=== PATIENT | female | born 1935 | race African-American/Black ===

== ENCOUNTER 2017-11-24 17:14 | Inpatient (IN) ==
[2017-11-24] MEDS ORDERED: SODIUM CHLORIDE 0.9% 500 ML IV STA (18:20)
[2017-11-24] MEDS ORDERED: KETOROLAC 30 MG/1 ML VIAL IV STA (19:04)
[2017-11-24 19:05] LABS: Basophils % 0.3 % (0.0-0.8); Eosinophils % 0.1 % (0.00-10.9); Hematocrit 38.9 VOL% (35.7-47.0); Immature Granulocytes % 0.6 %; Immature Granulocytes Absolute 0.06 #; Lymphocytes # 0.6 10*3/uL (1.4-4.0); Mean Corpuscular HGB Conc 33.4 GM/DL (32-36); Mean Corpuscular Hemoglobin 27 PG (27-34); Mean Corpuscular Volume 80.9 FL (87-102); Mean Platelet Volume 11.9 FL (9.6-12.0); Monocytes # 0.7 10*3/uL (0.11-0.8); Monocytes % 6.6 % (1.7-12.7); Neutrophils # 8.9 10*3/uL (1.4-7.4); Neutrophils % 86.4 % (38.7-73.9); Platelet Count 227 T/CUMM (130-400); Red Blood Count 4.81 MC/CUMM (3.8-5.5); Red Cell Distribution Width 14.9 % (9.3-17.3); White Blood Count 10.3 T/CUMM (4-12)
[2017-11-24 19:10] LABS: Apearance,Urine CLEAR (Clear); Bilirubin,Urine Negative (Negative); Blood, Urine Small mg/dL (Negative); Glucose,Urine (UA) Negative (Negative); Ketones,Urine Negative (Negative); Mucus,Urine Occasional /LPF (Occasional); Nitrite,Urine Negative (Negative); Protein,Urine Negative; RBC,Urine 1 /HPF (0-4); Squamous Epithelial Cell,Urine Occasional /HPF (0-10); Urine Color Yellow (Yellow); Urine Specific Gravity 1.012 (1.001-1.035); Urine Urobilinogen < 2.0 EU/DL (0.2-1.0); WBC,Urine 2 /HPF (0-6)
[2017-11-24 19:27] LABS: Albumin 3.9 G/DL (3.4-5.0); Bilirubin,Total 0.5 MG/DL (0.2-1.0); Calcium 9.3 MG/DL (8.5-10.1); Lactic Acid 1.7 MMOL/L (0.4-2.0); Osmolality,Calculated 282.3 MOS/KG (273-304); Potassium 3.4 MMOL/L (3.5-5.1); Total Protein 7.7 G/DL (6.4-8.3)
[2017-11-24] MEDS ORDERED: ACETAMINOPHEN 500 MG TABLET ONE (19:43)
[2017-11-24] MEDS ORDERED: hydrALAZINE 20 MG/1 ML VIAL IV STA (20:04)
[2017-11-24] MEDS ORDERED: ACETAMINOPHEN 325 MG/10.15 ML UDCUP PO STA (20:04)
[2017-11-24] MEDS ORDERED: LEVOFLOXACIN INJ 750 MG in PREMIX 1 EACH IV STA (20:05)
[2017-11-24] MEDS ORDERED: DEXTROSE 50% 25 GM/50 ML VIAL IV PRN (22:11)
[2017-11-24] MEDS ORDERED: GLUCAGON 1 MG VIAL IM PRN (22:11)
[2017-11-24] MEDS ORDERED: ACETAMINOPHEN 325 MG TABLET PO PRN (22:11)
[2017-11-24] MEDS ORDERED: POTASSIUM CHLORIDE 20 MEQ PACK PO ONE (23:24)
[2017-11-25] MEDS: SODIUM CHLORIDE 0.45% 1,000 ML IV SCH ×3 (00:05→18:30)
[2017-11-25 07:18] LABS: Basophils % 0.2 % (0.0-0.8); Eosinophils % 0.1 % (0.00-10.9); Hematocrit 34.4 VOL% (35.7-47.0); Hemoglobin 11.7 GM/DL (12.0-16.0); Immature Granulocytes % 0.6 %; Immature Granulocytes Absolute 0.07 #; Lymphocytes # 1.4 10*3/uL (1.4-4.0); Lymphocytes % 12.8 % (21.3-54.2); Mean Corpuscular Hemoglobin 27 PG (27-34); Mean Platelet Volume 12.1 FL (9.6-12.0); Monocytes # 0.8 10*3/uL (0.11-0.8); Monocytes % 7.5 % (1.7-12.7); Neutrophils # 8.7 10*3/uL (1.4-7.4); Neutrophils % 78.8 % (38.7-73.9); Platelet Count 191 T/CUMM (130-400); White Blood Count 11.1 T/CUMM (4-12)
[2017-11-25 07:45] LABS: Calcium 8.2 MG/DL (8.5-10.1); Potassium 3.5 MMOL/L (3.5-5.1)
[2017-11-25 07:48] LABS: Band Neutrophils 7 % (0-10); Eosinophils 1 % (0-10); Lymphocytes 11 % (20-55); Platelet Estimate Normal; Segmented Neutrophils 76 % (50-85); Total Cells Counted 100
[2017-11-25 07:49] LABS: Elliptocytes Few
[2017-11-25] MEDS ORDERED: LEVOFLOXACIN 750 MG TABLET PO SCH (09:00)
[2017-11-25] MEDS: LISINOPRIL 20 MG TABLET PO SCH ×2 (09:35→21:12)
[2017-11-25] MEDS: PANTOPRAZOLE 40 MG TABLET PO SCH (09:36)
[2017-11-25] MEDS: hydroCHLOROthiazide 25 MG TABLET PO SCH (09:36)
[2017-11-25] MEDS: amLODIPine 10 MG TABLET PO SCH (09:36)
[2017-11-25] MEDS: CARVEDILOL 12.5 MG TABLET PO SCH ×2 (09:36→21:12)
[2017-11-25 10:24] LABS: % Iron Saturation 7.7 % (18-50); Ferritin 140.7 ng/ml (8-252)
[2017-11-25] MEDS: cefTRIAXone 1,000 MG in SYRINGE 1 EACH IV SCH (11:35)
[2017-11-25] MEDS: POTASSIUM CHLORIDE 20 MEQ TABLET PO SCH (11:35)
[2017-11-25] MEDS: AZITHROMYCIN INJ 500 MG in SODIUM CHLORIDE 0.9% 250 ML IV SCH (11:36)
[2017-11-25] MEDS: ALBUTEROL/IPRATROPIUM 3 ML NEB RESP TX SCH ×2 (13:05→19:12)
[2017-11-26] MEDS: ALBUTEROL/IPRATROPIUM 3 ML NEB RESP TX SCH ×4 (00:42→20:26)
[2017-11-26] MEDS: SODIUM CHLORIDE 0.45% 1,000 ML IV SCH ×4 (02:05→22:07)
[2017-11-26 06:53] LABS: Calcium 7.2 MG/DL (8.5-10.1); Osmolality,Calculated 261.5 MOS/KG (273-304); Potassium 3.7 MMOL/L (3.5-5.1); Risk Ratio 3.66; VLDL CHOLESTEROL 17.4 MG/DL
[2017-11-26 08:08] LABS: Basophils % 0.2 % (0.0-0.8); Eosinophils # 0.1 10*3/uL (0.0-0.87); Eosinophils % 0.5 % (0.00-10.9); Hematocrit 33.8 VOL% (35.7-47.0); Hemoglobin 11.4 GM/DL (12.0-16.0); Immature Granulocytes % 0.5 %; Immature Granulocytes Absolute 0.05 #; Lymphocytes # 1.5 10*3/uL (1.4-4.0); Lymphocytes % 15.5 % (21.3-54.2); Mean Corpuscular HGB Conc 33.7 GM/DL (32-36); Mean Corpuscular Hemoglobin 27 PG (27-34); Mean Corpuscular Volume 79.5 FL (87-102); Mean Platelet Volume 12.1 FL (9.6-12.0); Monocytes # 0.7 10*3/uL (0.11-0.8); Monocytes % 7.8 % (1.7-12.7); Neutrophils # 7.2 10*3/uL (1.4-7.4); Neutrophils % 75.5 % (38.7-73.9); Platelet Count 204 T/CUMM (130-400); Red Blood Count 4.25 MC/CUMM (3.8-5.5); Red Cell Distribution Width 15.2 % (9.3-17.3); White Blood Count 9.5 T/CUMM (4-12)
[2017-11-26] MEDS: LISINOPRIL 20 MG TABLET PO SCH ×2 (10:00→22:08)
[2017-11-26] MEDS: PANTOPRAZOLE 40 MG TABLET PO SCH (10:01)
[2017-11-26] MEDS: CARVEDILOL 12.5 MG TABLET PO SCH ×2 (10:01→22:08)
[2017-11-26] MEDS: POTASSIUM CHLORIDE 20 MEQ TABLET PO SCH (10:01)
[2017-11-26] MEDS: amLODIPine 10 MG TABLET PO SCH (10:01)
[2017-11-26] MEDS: cefTRIAXone 1,000 MG in SYRINGE 1 EACH IV SCH (10:05)
[2017-11-26] MEDS: hydroCHLOROthiazide 25 MG TABLET PO SCH (10:05)
[2017-11-26] MEDS: AZITHROMYCIN INJ 500 MG in SODIUM CHLORIDE 0.9% 250 ML IV SCH (16:16)
[2017-11-27] MEDS: ALBUTEROL/IPRATROPIUM 3 ML NEB RESP TX SCH ×2 (00:33→07:17)
[2017-11-27] MEDS: SODIUM CHLORIDE 0.45% 1,000 ML IV SCH (05:46)
[2017-11-27] MEDS: LISINOPRIL 20 MG TABLET PO SCH (08:51)
[2017-11-27] MEDS: PANTOPRAZOLE 40 MG TABLET PO SCH (08:52)
[2017-11-27] MEDS: POTASSIUM CHLORIDE 20 MEQ TABLET PO SCH (08:52)
[2017-11-27] MEDS: hydroCHLOROthiazide 25 MG TABLET PO SCH (08:52)
[2017-11-27] MEDS: amLODIPine 10 MG TABLET PO SCH (08:52)
[2017-11-27] MEDS: CARVEDILOL 12.5 MG TABLET PO SCH (08:52)
[2017-11-27] MEDS ORDERED: AZITHROMYCIN 250 MG TABLET PO SCH (09:00)
[2017-11-27] MEDS: cefTRIAXone 1,000 MG in SYRINGE 1 EACH IV SCH (11:59)
[2017-11-27 12:15] VITALS: BP 181/80
== END 2017-11-27 12:01 | disposition home or self-care (01) | DRG 194 ==
LOC: N.ED 17:14 → N.EDINP 22:11 → N.5E 23:06
PROVIDERS: ADMIT Internal Medicine Infectious Disease; ATTEND Internal Medicine Infectious Disease

== ENCOUNTER 2019-10-06 13:22 | Inpatient (IN) ==
[2019-10-06] MEDS ORDERED: NITROGLYCERIN SL 0.4 MG TABLET SL PRN (13:50)
[2019-10-06] MEDS ORDERED: ASPIRIN 325 MG TABLET PO STA (13:50)
[2019-10-06 14:51] LABS: Albumin 3.6 G/DL (3.4-5.0); Bilirubin,Total 0.7 MG/DL (0.2-1.0); Calcium 9.3 MG/DL (8.5-10.1); Osmolality,Calculated 310.6 MOS/KG (273-304)
[2019-10-06 15:12] LABS: Basophils % 0.3 % (0.0-0.8); Eosinophils # 0.1 10*3/uL (0.0-0.87); Eosinophils % 0.9 % (0.00-10.9); Hematocrit 45.1 VOL% (35.7-47.0); Hemoglobin 13.5 GM/DL (12.0-16.0); Immature Granulocytes % 0.9 %; Immature Granulocytes Absolute 0.06 #; Lymphocytes # 1.1 10*3/uL (1.4-4.0); Lymphocytes % 17.5 % (21.3-54.2); Mean Corpuscular HGB Conc 29.9 GM/DL (32-36); Mean Corpuscular Volume 79.8 FL (87-102); Monocytes % 6.7 % (1.7-12.7); Neutrophils % 73.7 % (38.7-73.9); Platelet Count 318 T/CUMM (130-400); Red Blood Count 5.65 MC/CUMM (3.8-5.5); Red Cell Distribution Width 17.7 % (9.3-17.3); White Blood Count 6.5 T/CUMM (4-12)
[2019-10-06 15:44] LABS: Albumin 3.3 G/DL (3.4-5.0); Bilirubin,Total 0.6 MG/DL (0.2-1.0); Calcium 9.3 MG/DL (8.5-10.1); Osmolality,Calculated 312.4 MOS/KG (273-304); Total Protein 8.9 G/DL (6.4-8.3)
[2019-10-06 16:56] LABS: Lymphocytes 13 % (20-55); Segmented Neutrophils 81 % (50-85); Total Cells Counted 100
[2019-10-06 16:57] LABS: Hypochromasia 1+; Microcytosis 1+; Ovalocytes Few; Polychromasia Few
[2019-10-06 16:58] LABS: Platelet Estimate Adequate; Schistocytes Few
[2019-10-06] MEDS ORDERED: hydrALAZINE 20 MG/1 ML VIAL IV STA (16:58)
[2019-10-06] MEDS ORDERED: MAGNESIUM SULF RIDER 2 GM in PREMIX 1 EACH IV PRN (17:11)
[2019-10-06] MEDS ORDERED: POTASSIUM CHLORIDE 20 MEQ TABLET PO PRN (17:11)
[2019-10-06] MEDS ORDERED: ACETAMINOPHEN 325 MG TABLET PO PRN (17:11)
[2019-10-06] MEDS ORDERED: ONDANSETRON 4 MG/2 ML VIAL IV PRN (17:11)
[2019-10-06] MEDS ORDERED: ALUM/MAG/SIMETH/LIDO VISC 1:1 30 ML BOTTLE PO PRN (17:11)
[2019-10-06] MEDS: ENOXAPARIN 80 MG/0.8 ML SYRINGE SUBCUT SCH (20:46)
[2019-10-06] MEDS: carvediloL 12.5 MG TABLET PO SCH (20:47)
[2019-10-06] MEDS: ATORVASTATIN 80 MG TABLET PO SCH (20:47)
[2019-10-06] MEDS ORDERED: ENOXAPARIN 40 MG/0.4 ML SYRINGE SUBCUT SCH ×2 (21:00)
[2019-10-07] MEDS: DEXTROSE 5% 1,000 ML IV SCH ×3 (02:20→15:35)
[2019-10-07 07:23] LABS: Basophils % 0.6 % (0.0-0.8); Eosinophils # 0.1 10*3/uL (0.0-0.87); Eosinophils % 1.1 % (0.00-10.9); Hematocrit 41.1 VOL% (35.7-47.0); Hemoglobin 12.6 GM/DL (12.0-16.0); Immature Granulocytes % 0.8 %; Immature Granulocytes Absolute 0.05 #; Lymphocytes # 1.5 10*3/uL (1.4-4.0); Mean Corpuscular HGB Conc 30.7 GM/DL (32-36); Mean Corpuscular Volume 78.7 FL (87-102); Monocytes % 9.3 % (1.7-12.7); Neutrophils % 66.2 % (38.7-73.9); Platelet Count 393 T/CUMM (130-400); Red Blood Count 5.22 MC/CUMM (3.8-5.5); Red Cell Distribution Width 16.8 % (9.3-17.3); White Blood Count 6.6 T/CUMM (4-12)
[2019-10-07 07:34] LABS: Bilirubin,Total 0.6 MG/DL (0.2-1.0); Calcium 9.3 MG/DL (8.5-10.1); Osmolality,Calculated 318.3 MOS/KG (273-304); Total Protein 8.6 G/DL (6.4-8.3)
[2019-10-07] MEDS: carvediloL 12.5 MG TABLET PO SCH ×2 (08:57→16:35)
[2019-10-07] MEDS: amLODIPine 10 MG TABLET PO SCH (08:57)
[2019-10-07] MEDS: PANTOPRAZOLE 40 MG TABLET PO SCH (08:57)
[2019-10-07] MEDS: ASPIRIN EC 325 MG TABLET PO SCH (08:57)
[2019-10-07 11:06] LABS: Atypical Lymphocytes Few; Burr Cells Few; Eosinophils 2 % (0-10); Giant Platelets Few; Lymphocytes 21 % (20-55); Polychromasia Slight; Schistocytes Slight; Segmented Neutrophils 65 % (50-85); Total Cells Counted 100
[2019-10-07 11:07] LABS: Hypochromasia 3+; Microcytosis 2+; Platelet Estimate Increased; Rouleau Few
[2019-10-07] MEDS: ATORVASTATIN 80 MG TABLET PO SCH (21:33)
[2019-10-07] MEDS: ENOXAPARIN 80 MG/0.8 ML SYRINGE SUBCUT SCH (21:33)
[2019-10-08] MEDS: DEXTROSE 5% 1,000 ML IV SCH (01:03)
[2019-10-08 05:50] LABS: Basophils # 0.1 10*3/uL (0.0-0.2); Basophils % 0.9 % (0.0-0.8); Eosinophils # 0.1 10*3/uL (0.0-0.87); Eosinophils % 1.6 % (0.00-10.9); Hematocrit 38.5 VOL% (35.7-47.0); Hemoglobin 11.6 GM/DL (12.0-16.0); Immature Granulocytes % 0.9 %; Immature Granulocytes Absolute 0.05 #; Lymphocytes # 1.3 10*3/uL (1.4-4.0); Lymphocytes % 23.2 % (21.3-54.2); Mean Corpuscular HGB Conc 30.1 GM/DL (32-36); Mean Corpuscular Volume 78.1 FL (87-102); Mean Platelet Volume 12.4 FL (9.6-12.0); Monocytes % 9.6 % (1.7-12.7); Neutrophils % 63.8 % (38.7-73.9); Platelet Count 345 T/CUMM (130-400); Red Blood Count 4.93 MC/CUMM (3.8-5.5); Red Cell Distribution Width 16.5 % (9.3-17.3); White Blood Count 5.7 T/CUMM (4-12)
[2019-10-08 06:06] LABS: Albumin 2.5 G/DL (3.4-5.0); Bilirubin,Total 0.8 MG/DL (0.2-1.0); Osmolality,Calculated 304.7 MOS/KG (273-304); Total Protein 7.5 G/DL (6.4-8.3)
[2019-10-08 06:38] LABS: Burr Cells Slight; Hypochromasia 1+; Lymphocytes 18 % (20-55); Ovalocytes Slight; Platelet Estimate Adequate; Segmented Neutrophils 73 % (50-85); Total Cells Counted 100
[2019-10-08 06:39] LABS: Microcytosis 1+
[2019-10-08 08:43] LABS: Ferritin 239.2 ng/ml (8-252)
[2019-10-08] MEDS: PANTOPRAZOLE 40 MG TABLET PO SCH (09:21)
[2019-10-08] MEDS: amLODIPine 10 MG TABLET PO SCH (09:21)
[2019-10-08] MEDS: ASPIRIN EC 325 MG TABLET PO SCH (09:21)
[2019-10-08] MEDS: carvediloL 12.5 MG TABLET PO SCH ×2 (09:22→17:07)
[2019-10-08] MEDS: SODIUM BICARB INJ 50 MEQ in SODIUM CHLORIDE 0.45% 1,000 ML IV SCH ×2 (09:46→23:17)
[2019-10-08] MEDS ORDERED: hydrALAZINE 20 MG/1 ML VIAL IV PRN (09:56)
[2019-10-08] MEDS: ATORVASTATIN 80 MG TABLET PO SCH (21:05)
[2019-10-09 05:46] LABS: Basophils % 0.7 % (0.0-0.8); Eosinophils # 0.1 10*3/uL (0.0-0.87); Eosinophils % 1.9 % (0.00-10.9); Hematocrit 32.1 VOL% (35.7-47.0); Hemoglobin 9.9 GM/DL (12.0-16.0); Immature Granulocytes Absolute 0.04 #; Lymphocytes # 1.3 10*3/uL (1.4-4.0); Lymphocytes % 31.2 % (21.3-54.2); Mean Corpuscular HGB Conc 30.8 GM/DL (32-36); Mean Corpuscular Volume 77.7 FL (87-102); Mean Platelet Volume 12.3 FL (9.6-12.0); Monocytes % 12.2 % (1.7-12.7); Platelet Count 331 T/CUMM (130-400); Red Blood Count 4.13 MC/CUMM (3.8-5.5); Red Cell Distribution Width 16.4 % (9.3-17.3); White Blood Count 4.2 T/CUMM (4-12)
[2019-10-09 06:08] LABS: Hypochromasia 1+; Microcytosis 1+; Ovalocytes Slight; Platelet Estimate Adequate
[2019-10-09 06:21] LABS: Calcium 8.2 MG/DL (8.5-10.1)
[2019-10-09] MEDS: carvediloL 12.5 MG TABLET PO SCH ×2 (09:18→17:14)
[2019-10-09] MEDS: ASPIRIN EC 325 MG TABLET PO SCH (09:19)
[2019-10-09] MEDS: HEPARIN 5,000 UNIT/1 ML VIAL SUBCUT SCH ×2 (09:19→21:00)
[2019-10-09] MEDS: PANTOPRAZOLE 40 MG TABLET PO SCH (09:20)
[2019-10-09] MEDS: POTASSIUM CHLORIDE 20 MEQ TABLET PO SCH ×2 (09:20→21:00)
[2019-10-09] MEDS ORDERED: HYDROXYCHLOROQUINE 200 MG TABLET PO ONE (12:05)
[2019-10-09] MEDS: SODIUM BICARB INJ 50 MEQ in SODIUM CHLORIDE 0.45% 1,000 ML IV SCH (15:38)
[2019-10-09] MEDS: ATORVASTATIN 80 MG TABLET PO SCH (21:00)
[2019-10-10] MEDS: POTASSIUM CHLORIDE 20 MEQ TABLET PO SCH (08:15)
[2019-10-10] MEDS: carvediloL 12.5 MG TABLET PO SCH (08:15)
[2019-10-10] MEDS: PANTOPRAZOLE 40 MG TABLET PO SCH (08:15)
[2019-10-10] MEDS: ASPIRIN EC 325 MG TABLET PO SCH (08:15)
[2019-10-10] MEDS: HEPARIN 5,000 UNIT/1 ML VIAL SUBCUT SCH (08:15)
[2019-10-10] MEDS ORDERED: ZINC SULFATE 220 MG CAPSULE PO SCH (09:00)
[2019-10-10] MEDS ORDERED: HYDROXYCHLOROQUINE 200 MG TABLET PO ONE (09:00)
[2019-10-10] MEDS ORDERED: POTASSIUM CHLORIDE 20 MEQ TABLET PO ONE (09:28)
[2019-10-10] MEDS: SODIUM BICARB INJ 50 MEQ in SODIUM CHLORIDE 0.45% 1,000 ML IV SCH (09:40)
[2019-10-10 10:46] VITALS: BP 156/56
[2019-10-10] MEDS ORDERED: HYDROXYCHLOROQUINE 200 MG TABLET PO SCH (21:00)
== END 2019-10-10 12:20 | disposition home health service (06) | DRG 177 ==
LOC: N.ED 13:22 → N.EDINP 16:26 → SUATTDRO 16:26 → N.2E 18:20
PROVIDERS: ADMIT Internal Medicine; ATTEND Internal Medicine